=== PATIENT | female | born 1990 | race Caucasian/White ===

== ENCOUNTER 2024-09-27 23:54 | Emergency (ER) | payer SELFPAY ==
[2024-09-27 23:57] VITALS: BP 130/89; PULSE 85; RESP 18; TEMP 36.6; O2SAT 96; BMI 33.7
[2024-09-28] MEDS: Ondansetron 4 MG/2 ML Vial IV (00:15)
[2024-09-28] MEDS: Meclizine HCl 25 MG Tablet PO (00:15)
[2024-09-28] MEDS: 0.9% Normal Saline (1000mL) 1,000 ML 1000 ML IV (00:16)
[2024-09-28 00:31] LABS: Absolute Lymphocyte Count 1.94 X10^3/uL (0.83-4.51); Absolute Neutrophil Count 12.5 X10^3/uL (2.0-7.7); Basophil# 0.08 X10^3/uL; Basophil% 0.5 % (0-1); Eosinophils% 0.6 % (0-5); Hematocrit 38.8 % (37-47); Hemoglobin 13.1 g/dL (12.0-15.0); Lymphocyte # 1.94 X10^3/ul (0.83-4.51); Lymphocyte % 12.4 % (19-41); Mean Corp Hgb Conc 33.8 g/dL (32-36); Mean Corpuscular Hgb 29.6 pg (27.0-32.0); Mean Corpuscular Volume 87.6 fL (81-99); Mean Platelet Vol. 9.2 fl (6.2-12.0); Monocyte# 0.86 X10^3/uL; Monocyte% 5.5 % (0-10); NRBC Flagged by Analyzer 0 % (0-5); Neutrophil # 12.53 X10^3/uL (2.7-7.7); Neutrophil % 80.4 % (47-70); Platelet Count 336 K/mm3 (150-450); RBC Distribution Width CV 12.4 % (11.6-14.6); Red Blood Count 4.43 M/mm3 (4.2-5.4); White Blood Count 15.6 K/mm3 (4.4-11.0)
[2024-09-28 00:45] LABS: Internal QC Validated? YES +Cl - CLEAR BKGD; Pregnancy, Serum, hCG Quali. NEGATIVE Negative
--- NOTE | 2024-09-28 01:02 | EX.ED.DYSGE1 ---
HPI History of Present Illness Chief Complaint: Neuro S/Sx Informant: patient and spouse/S.O. Narrative Narrative: Patient 34-year-old female denies any significant past medical history presenting with dizziness and vomiting as well as generalized weakness. Patient states yesterday she felt like her head was underwater and was having discomfort in her ears. She denies congestion. She started having dizziness which she describes as a room spinning sensation. She was [place] with her family today and states when he spoke to her at 915 (they are coming back from [place]) she was normal. The last treatment center Drive she started to get very dizzy and had nausea which progressed to vomiting. States he felt weak and almost like she could not hold her head up. States had tingling around her lips and her arms (left more than right). She felt she had a hard time finding her words and had stuttering speech. She denies any syncope. She had associated fever. She has never felt like this before. Denies any medications or supplements. She notes she did stop a weight loss medication a couple days ago but does not think this is related. Came in for further evaluation for her symptoms. No sick contacts reported. Denies any chest pain or palpitations. Denies any shortness of breath difficulty breathing. No abdominal pain. Denies any urinary symptoms. [facility] Medical History Migraine Home Medications ?Medication ?Instructions ?Recorded ?Last Taken ?Type meclizine 25 mg tablet 25 mg PO 4X/DAY PRN PRN Dizziness 09/28/24 Unknown Rx #20 tabs Allergy/AdvReac Type Severity Reaction Status Date / Time No Known Allergies Allergy Verified 09/28/24 00:08 Social History Smoking Status: Never smoker ROS ROS ED Constitutional Constitutional ED: Reports other Details: Vertigo ; Denies chills or fever(s) Eyes Eyes: Denies blurry vision, change in vision or diplopia ENT ENT ED: Reports other Details: Head fullness/ear pressure ; Denies rhinorrhea or sore throat Cardiovascular Cardiovascular: Denies chest pain or palpitations Respiratory/Chest Respiratory/Chest: Denies cough or dyspnea Gastrointestinal Gastrointestinal: Reports nausea and vomiting; Denies abdominal pain Genitourinary Genitourinary ED: Denies dysuria or urinary frequency Musculoskeletal Musculoskeletal: Denies arthralgias or myalgias Integumentary Denies rash Neurologic Neurologic: Reports paresthesias and weakness; Denies headache(s) EXAM Physical Exam Const Vital Signs: 09/27/24 23:57 09/28/24 02:00 09/28/24 04:05 Temperature 97.8 F 98 F Temperature Source Oral Pulse Rate 85 88 98 Respiratory Rate 18 19 H 18 Blood Pressure 130/89 H 126/81 H 126/81 H Blood Pressure Mean 102 96 96 Pulse Ox 96 95 99 Oxygen Delivery Method Room Air Room Air Positive well nourished and well developed General Appearance ED: well developed and NAD HEENT Reports moist mucous membranes HEENT Narrative: Mild injection of the left tympanic membrane. No air-fluid level noted. Normal right panic membrane. Normal ear canals. Eyes PERRL and EOMs intact bilaterally Eyes Narrative: No obvious nystagmus but patient has a hard time keeping her eyes open on initial exam. No rotary nystagmus appreciated. Neck supple Chest Wall inspection of chest normal and palpation of chest normal Resp normal respiratory effort and clear to auscultation bilaterally Cardio regular rate and regular rhythm GI normal to inspection, nondistended, normoactive bowel sounds Extremity normal to inspection General Extremety ED: Negative for edema General Extremity: Negative for edema Neuro oriented x3, CN's II-XII intact bilaterally and no sensory deficits noted Neuro Narrative: No truncal ataxia. Feels weak sitting up in bed but is able to sit up in the bed by herself. Normal [id number]. Normal [id number]. Normal tandem gait. Sensorium / Orientation: alert Motor Exam: strength 5/5 throughout Psych mental status grossly normal Skin no rashes or lesions noted and no wounds MDM MDM MDM Narrative Medical decision making narrative: Patient's evaluated for sudden onset of vertigo associated nausea and vomiting. She also felt generally very weak when this happened. She notes yesterday she developed head congestion and fullness. Upon arrival patient hallucinations and feels as nontoxic. She does not have any focal neurologic deficits and I do not think this is a stroke or more severe process likely causing vertigo. Her exam is consistent with vertigo. Given the generalized weakness we will also obtain lab work. She has no truncal ataxia with normal finger-nose and [id number] and does not have any risk factors for central process. Do not think she requires neuroimaging. Is treated IV Zofran and meclizine as well as IV fluids. On repeat evaluation she is improving but continues to be nauseous and have some dizziness was also given IV Ativan. She is feeling much better after this. Vital signs remain normal in the emergency room. Lab work significant for leukocytosis of 15.6 however I suspect this is reactive associate with her vomiting tonight. She is afebrile and does not have any meningeal signs. CMP normal. No significant electrolyte abnormality. is negative. No risk factors for hypercoagulable state and low suspicion for dural venous sinus thrombosis. Urinalysis is normal. Patient is ambulate to the emergency room and had significant improvement. She walks with a steady gait and is not ataxic. Will be discharged home with instructions on peripheral vertigo and a prescription for meclizine. Towards the end of her ear states she was able to tolerate Arnulfo-Hallpike maneuver which was consistent with left BPPV. Is given discharge instructions on how to do the Josue maneuver Lab Data Attestation: I reviewed the patient's lab results. Labs: Laboratory Results - last 24 hr 09/28/24 09/28/24 00:15 01:08 WBC 15.6 H RBC 4.43 Hgb 13.1 Hct 38.8 MCV 87.6 MCH 29.6 MCHC 33.8 RDW Std Deviation 40.0 RDW Coeff of Roxy 12.4 Plt Count 336 MPV 9.2 Immature Gran % (Auto) 0.600 Neut % (Auto) 80.4 H Lymph % (Auto) 12.4 L [place] % (Auto) 5.5 Eos % (Auto) 0.6 Baso % (Auto) 0.5 Absolute Neuts (auto) 12.5 H Absolute Lymphs (auto) 1.94 Nucleated RBC % 0 Sodium 138 Potassium 3.6 Chloride 102 Carbon Dioxide 22.9 Anion Gap 14 BUN 13 Creatinine 0.76 Estim Creat Clear Calc 116.77 Est GFR (MDRD) Non-Af 106 BUN/Creatinine Ratio 17.4 Glucose 144 H Calcium 9.1 Total Bilirubin 0.18 AST 28 ALT 31 Alkaline Phosphatase 57 Total Protein 7.3 Albumin 4.3 Globulin 3.0 Albumin/Globulin Ratio 1.4 Lipase 29 Serum , Qual NEGATIVE Urine Color Yellow Urine Clarity Clear Urine pH 6.5 Ur Specific [place] 1.010 Urine Protein 30 H Urine Glucose (UA) Normal Urine Ketones Negative Urine Occult Blood Negative Urine Nitrite Negative Urine Bilirubin Negative Urine Urobilinogen Normal Ur Leukocyte Esterase Negative Urine RBC 0 SEEN Urine WBC 0 SEEN Ur Squamous Epith Cells 0 SEEN Urine Bacteria 0 SEEN Urine Mucus 0 SEEN Discharge Plan Triage Chief Complaint: Neuro S/Sx ED Provider: Hayley Carter Dx/Rx/DC Orders Clinical Impression: Peripheral vertigo involving left ear Instructions: ED BPV Vertigo Prescriptions: New meclizine 25 mg tablet 25 mg PO 4X/DAY PRN PRN (Reason: Dizziness) Qty: 20 0RF Primary Care Provider: Ramesh Newman Referrals: Ramesh Newman DO [Primary Care Provider] - Activity Restrictions/Additional Instructions: Follow-up with your primary care doctor especially if your symptoms do not improve over the next few days. Make sure you are drinking plenty of fluids. Take the vertigo medicine as needed up to 4 times a day with symptoms. If you can tolerate I do recommend performing the Josue maneuver (you been given a handout on how to do this). Print Language: Pashto Disposition Disposition: Home, Self Care Discharge Date/Time: 09/28/24 04:12
[2024-09-28 01:09] LABS: ALB/GLOB Ratio 1.4 RATIO (0.9-2.4); AST(SGOT) 28 U/L (<=31); Alanine Aminotransfer ALT/SGPT 31 U/L (<=34); Albumin, Serum 4.3 g/dL (3.5-5.0); Alkaline Phosphatase 57 U/L (35-104); Anion Gap 14 (5-15); BUN 13 mg/dL (4-19); BUN/Creat Ratio 17.4 RATIO (10-20); Calcium,Total 9.1 mg/dL (7.6-11.0); Carbon Dioxide 22.9 mmol/L (21.0-32.0); Chloride 102 mmol/L (98-108); Creatinine, Serum 0.76 mg/dL (0.70-1.20); EST Glomerular Filtration Rate 106 (>60); Estimated Creatinine Clearance 116.77 ml/min (50-250); Glucose 144 mg/dL (70-99); Lipase 29 U/L (13-75); Potassium 3.6 mmol/L (3.3-5.1); Protein, Total 7.3 g/dL (5.9-8.4); Sodium Level 138 mmol/L (133-145); Total Bilirubin 0.18 mg/dL (0.00-1.30)
[2024-09-28 01:17] LABS: Bacteria 0 SEEN /hpf (None Seen); Mucous, Urine 0 SEEN /hpf (<or=2+); Red Blood Cells-Urine 0 SEEN /hpf (0-5); Squamous Epithelial Cells - UA 0 SEEN /hpf (5-10); White Blood Cells 0 SEEN /hpf (0-5)
[2024-09-28 01:18] LABS: Color, Urine Yellow (Yellow); Glucose, Dipstick Normal (Normal); Ketone-Dipstick Negative (Negative); Leukocyte Esterase-Dipstick Negative /ul (Negative); Nitrite-Dipstick Negative (Negative); Occult Blood-Urine Negative /ul (Negative); Protein-Dipstick 30 mg/dl (Negative); Urine Bilirubin Dipstick Negative (Negative); Urine Clarity Clear (Clear); Urine Urobilinogen Normal (Normal); Urine pH 6.5 (5.0 - 8.0)
[2024-09-28 01:31] VITALS: BMI 33.7
[2024-09-28 02:00] VITALS: BP 126/81; PULSE 88; RESP 19; O2SAT 95
[2024-09-28] MEDS: Lorazepam 2 MG/ML WCH Syringe 1 MG IV (02:15)
[2024-09-28 04:05] VITALS: BP 126/81; PULSE 98; RESP 18; TEMP 36.6; O2SAT 99
== END 2024-09-28 04:12 | disposition home or self-care (01) ==
PROVIDERS: Emergency Provider Emergency Medicine; PCP Student in an Organized Health Care Education/Training Program; Visit Provider Emergency Medicine
DX: H81.392 Other peripheral vertigo, left ear (principal)
CPT/HCPCS: 80053; 81001; 83690; 84703; 85025; 96361; 96374; 96375; 99285; A4216; J2405